=== PATIENT | female | born 1990 | race African-American/Black ===

== ENCOUNTER 2016-09-08 11:50 | Inpatient (IN) | payer BC ==
[~2016-09-08] VITALS: Ht 167.6 cm; Wt 98.2 kg
[2016-09-08] VITALS (26 sets, daily range): BP systolic 110–175; BP diastolic 55–102; PULSE 71–102; TEMP 97.5–97.8
[~2016-09-08 11:50] MED LIST: PRENATAL
[2016-09-08 13:56] LABS: BASO % 0.3 % (0.0-2.0); EOS # 0.1 (0.0-0.7); EOS % 0.6 % (0-4.0); GRAN # 6.9 (1.4-6.5); GRAN % 63.7 % (42.2-75.2); LYMPH % 27.9 % (20.0-51.0); MEAN CELL VOLUME 88 fl (80.0-100.0); MEAN CORPUSCULAR HGB CONC 33 g/dl (33.0-37.0); MEAN PLATELET VOLUME 11.6 fl (7.4-10.4); MONO # 0.8 (0.1-0.6); MONO % 6.9 % (1.7-9.3); PLATELET COUNT 156 K/mm3 (130-400); RED BLOOD COUNT 3.98 M/mm3 (4.10-5.30); REDCELL DISTRIBUTION WIDTH-CV 15.8 % (11.5-14.5); WHITE BLOOD COUNT 10.9 K/mm3 (4.8-10.8)
[2016-09-08 14:09] LABS: HEMATOCRIT 35.2 % (37.0-47.0); HEMOGLOBIN 11.6 g/dl (12.5-16.0); MEAN CORPUSCULAR HEMOGLOBIN 29 pg (27.0-31.0)
[2016-09-09 02:45] VITALS: BP 118/78; PULSE 90; TEMP 98.4
[2016-09-09 06:55] VITALS: BP 121/60; PULSE 87; TEMP 97.7
[2016-09-09] MEDS ORDERED: IBU600 MG PO (08:32)
[2016-09-09] MEDS ORDERED: PERCOCET 325 MG1 TA2 PO (08:33)
[2016-09-09 13:40] VITALS: BP 130/80; PULSE 80; TEMP 99
[2016-09-09 15:09] VITALS: BP 129/60; PULSE 78; TEMP 97.8
== END 2016-09-09 19:40 | disposition home or self-care (01) | DRG 775 ==
LOC: LDRO 11:50 → OB 12:00 → LDR 12:00 → OB 23:00
PROVIDERS: Obstetrics & Gynecology
PROC: 10E0XZZ Delivery of Products of Conception, External Approach (ICD-10-PCS; principal; 2016-09-08)
DX: O77.0 Labor and delivery complicated by meconium in amniotic fluid (principal); O69.81X0 Labor and delivery complicated by cord around neck, without compression, not applicable or unspecified; O99.02 Anemia complicating childbirth; D64.9 Anemia, unspecified; Z3A.39 39 weeks gestation of pregnancy; Z37.0 Single live birth
CPT/HCPCS: J2590; J2795; J7120